=== PATIENT | female | born 1965 | race Caucasian/White ===

== ENCOUNTER 2018-05-12 13:38 | Outpatient (CLI) | payer BC ==
--- NOTE | 2018-05-12 14:24 | RAD ---
THREE VIEWS LEFT CHEST WALL: Indication: Left chest pain. Comparison: None. FINDINGS: Visualized left lung is clear. No pneumothorax is evident. No definite displaced left sided rib fract ure is evident. IMPRESSION: No displaced left sided rib fracture. POS: [facility]
== END 2018-05-12 13:39 | disposition home or self-care (01) ==
LOC: SCSRAD 13:38
PROVIDERS: ATTEND Family Medicine
DX: R07.2 Precordial pain (principal); R07.81 Pleurodynia

== ENCOUNTER 2021-03-18 15:49 | Outpatient (CLI) | payer BC | END 2021-03-18 15:50 | disposition home or self-care (01) | LOC: SCSRAD 15:49 | PROVIDERS: ATTEND Family Medicine | DX: R05.9 Cough, unspecified (principal) | CPT/HCPCS: 71046 ==

== ENCOUNTER 2024-10-25 14:34 | Outpatient (CLI) | payer BC | END 2024-10-25 14:35 | disposition home or self-care (01) | LOC: SCSRAD 14:34 | PROVIDERS: ATTEND Family Medicine | DX: M54.50 Low back pain, unspecified (principal); M47.816 Spondylosis without myelopathy or radiculopathy, lumbar region | CPT/HCPCS: 72100; 72220 ==

== ENCOUNTER 2024-12-20 13:50 | Outpatient (CLI) | payer BC | END 2024-12-20 13:51 | disposition home or self-care (01) | LOC: SCSMRI 13:50 | PROVIDERS: ATTEND Family Medicine | DX: S83.232A Complex tear of medial meniscus, current injury, left knee, initial encounter (principal); M24.19 Other articular cartilage disorders, other specified site ==